=== PATIENT | female | born 1950 | race Caucasian/White ===

== ENCOUNTER 2016-06-24 21:36 | Emergency (ER) | payer MEDICARE, OTHER ==
[~2016-06-24 21:36] MED LIST: ADVAIR 100-501 EACH INH; ADVAIR 500-501 EACH INH; ALBUTEROL1.25 MG/3 INH; ALBUTEROL2.5 MG/3 M IH; ATROVENT HFA12.9 GM INH; CARAFATE1 GM PO; CETIRIZINE HCL10 MG PO; DUONEB 2.5-0.5MG3 ML INH; DUONEB 2.5-0.5MG3 ML NEB; HCTZ25 MG PO; HYDROCHLOROTH12.5 MG PO; HYDROCHLOROTHIA25 MG PO; IBUPROFEN800 MG PO; LEVAQUIN500 MG PO; LEVAQUIN750 MG PO; LEVOFLOXACIN500 MG PO; LEVOFLOXACIN750 MG PO; MAALOX PLUS30 ML PO; METOCLOPRAMIDE10 MG PO; MONTELUKAST SOD10 MG PO; PANTOPRAZOLE SO40 MG PO; POTASSIUM CHLO10 ME1 PO; POTASSIUM CHLO10 MEQ PO; PRAMIPEXOLE DIHY1 MG PO; PREDNISONE10 MG PO; PREVACID30 M1 PO; PREVACID30 MG PO; PRILOSEC20 MG PO; PROAIR HFA8.5 GM INH; PROVENTIL INHAL17 GM INH; SUCRALFATE1 GM PO; VISTARIL25 MG PO; ZOVIRAX400 MG PO; [UNRECOGNIZED DRUG - OTHER] PO
[2016-06-24 22:41] LABS: BASO # 0.1 10_X3_uL (0.0-0.1); BASO % 0.7 % (0.1-1.2); EOS # 0.3 10_X3_uL (0.0-0.4); EOS % 2.4 % (0.7-5.8); GRAN # 9.7 10_X3_uL (1.6-6.1); GRAN % 71.2 % (34.0-71.1); HEMATOCRIT 39.2 % (34-45); HEMOGLOBIN 12.5 g/dL (11.2-15.7); LYMPH # 2.6 10_X3_uL (1.2-3.7); LYMPH % 18.9 % (19.3-51.7); MEAN CORPUSCULAR HEMOGLOBIN 26.8 pg (27.0-33.0); MEAN CORPUSCULAR HGB CONC 31.9 g/dL (32.0-36.0); MEAN CORPUSCULAR VOLUME 84.1 fL (79-95); MEAN PLATELET VOLUME 11.9 fl (7.5-11.5); MONO # 0.9 10_X3_uL (0.2-0.9); MONO % 6.8 % (4.7-12.5); RED BLOOD COUNT 4.66 x10_6/uL (3.9-5.2); RED CELL DISTRIBUTION WIDTH 13.6 % (11.7-14.4); WHITE BLOOD COUNT 13.6 x10_3/uL (4.0-10.0)
[2016-06-24 22:53] LABS: PLATELET COUNT 277 x10_3/uL (182-369)
[2016-06-24 23:00] LABS: ALBUMIN 3.8 gm/dL (3.4-5.0); ALKALINE PHOSPHATASE 62 U/L (50-136); ALT/SGPT 10 U/L (3.5-33.9); AST/SGOT 12 U/L (7.04-26.96); BILIRUBIN,TOTAL 0.31 mg/dL (0.0-1.0); BLOOD UREA NITROGEN 17 mg/dL (7-18); CALCIUM 8.8 mg/dL (8.7-10.7); CARBON DIOXIDE 31 mmol/L (21-32); CREATININE 0.7 mg/dL (0.6-1.3); GLUCOSE,RANDOM 103 mg/dL (70-99); POTASSIUM 3.5 mmol/L (3.5-5.1); SODIUM 142 mmol/L (136-145); TOTAL PROTEIN 7.4 gm/dL (6.4-8.2)
== END 2016-06-24 23:39 | disposition home or self-care (01) ==
LOC: ER 21:36
PROVIDERS: Emergency Medicine
DX: J44.1 Chronic obstructive pulmonary disease with (acute) exacerbation (principal); R06.02 Shortness of breath; Z99.81 Dependence on supplemental oxygen; I10 Essential (primary) hypertension; Z79.899 Other long term (current) drug therapy; Z88.1 Allergy status to other antibiotic agents
CPT/HCPCS: 36415; 71020; 80053; 83880; 85025; 87040; 93005; 94664; 96372; 99284; 99285-25; J2930

== ENCOUNTER 2016-11-05 19:42 | Inpatient (IN) | payer MEDICARE, OTHER ==
[~2016-11-05] VITALS: Ht 160 cm; Wt 83.0 kg
[2016-11-05 20:11] LABS: BASO # 0.1 10_X3_uL (0.0-0.1); BASO % 0.3 % (0.1-1.2); EOS # 0.2 10_X3_uL (0.0-0.4); EOS % 0.7 % (0.7-5.8); GRAN # 20.5 10_X3_uL (1.6-6.1); GRAN % 84.9 % (34.0-71.1); HEMATOCRIT 41.4 % (34-45); HEMOGLOBIN 13.9 g/dL (11.2-15.7); LYMPH # 2.1 10_X3_uL (1.2-3.7); LYMPH % 8.9 % (19.3-51.7); MEAN CORPUSCULAR HEMOGLOBIN 27.3 pg (27.0-33.0); MEAN CORPUSCULAR HGB CONC 33.6 g/dL (32.0-36.0); MEAN CORPUSCULAR VOLUME 81.2 fL (79-95); MEAN PLATELET VOLUME 11.5 fl (7.5-11.5); MONO # 1.3 10_X3_uL (0.2-0.9); MONO % 5.2 % (4.7-12.5); PLATELET COUNT 303 x10_3/uL (182-369); RED CELL DISTRIBUTION WIDTH 14.5 % (11.7-14.4)
[2016-11-05 20:14] LABS: WHITE BLOOD COUNT 24.2 x10_3/uL (4.0-10.0)
[2016-11-05 20:21] LABS: ARTERIAL BLD GAS O2 SATURATION 95.2 % (94-98); ARTERIAL BLOOD GAS BASE EXCESS 4.5 mmol/L (-2.0-3.0); ARTERIAL BLOOD GAS HCO3 28.8 mmol/L (22-26); ARTERIAL BLOOD GAS PCO2 42.9 mmHg (32-45); ARTERIAL BLOOD GAS pH 7.44 (7.35-7.45)
[2016-11-05 20:21] LABS: ALBUMIN 4.1 gm/dL (3.4-5.0); ALKALINE PHOSPHATASE 65 U/L (50-136); ALT/SGPT 14 U/L (3.5-33.9); AST/SGOT 18 U/L (7.04-26.96); BILIRUBIN,TOTAL 0.67 mg/dL (0.0-1.0); BLOOD UREA NITROGEN 10 mg/dL (7-18); CALCIUM 9.6 mg/dL (8.7-10.7); CARBON DIOXIDE 30 mmol/L (21-32); CREATININE 0.8 mg/dL (0.6-1.3); GLUCOSE,RANDOM 122 mg/dL (70-99); POTASSIUM 3.6 mmol/L (3.5-5.1); SODIUM 135 mmol/L (136-145); TOTAL PROTEIN 7.9 gm/dL (6.4-8.2)
[2016-11-06 11:29] LABS: HEMATOCRIT 38.4 % (34-45); HEMOGLOBIN 12.9 g/dL (11.2-15.7); MEAN CORPUSCULAR HEMOGLOBIN 27.2 pg (27.0-33.0); MEAN CORPUSCULAR HGB CONC 33.6 g/dL (32.0-36.0); MEAN PLATELET VOLUME 12.2 fl (7.5-11.5); RED BLOOD COUNT 4.74 x10_6/uL (3.9-5.2); RED CELL DISTRIBUTION WIDTH 14.2 % (11.7-14.4); WHITE BLOOD COUNT 17.5 x10_3/uL (4.0-10.0)
[2016-11-06 13:24] LABS: ALBUMIN 3.7 gm/dL (3.4-5.0); ALKALINE PHOSPHATASE 58 U/L (50-136); ALT/SGPT 13 U/L (3.5-33.9); AST/SGOT 12 U/L (7.04-26.96); BILIRUBIN,TOTAL 0.43 mg/dL (0.0-1.0); CALCIUM 9.5 mg/dL (8.7-10.7); CARBON DIOXIDE 24 mmol/L (21-32); CREATININE 0.9 mg/dL (0.6-1.3); GLUCOSE,RANDOM 206 mg/dL (70-99); MAGNESIUM 1.9 mg/dL (1.8-2.4); POTASSIUM 3.7 mmol/L (3.5-5.1); SODIUM 137 mmol/L (136-145); TOTAL PROTEIN 7.5 gm/dL (6.4-8.2)
[2016-11-06 13:29] LABS: BLOOD UREA NITROGEN 21 mg/dL (7-18)
[2016-11-06 14:05] LABS: URINE BILIRUBIN NEGATIVE (NEGATIVE); URINE BLOOD TRACE (NEGATIVE); URINE GLUCOSE (UA) 100 mg/dL (NORMAL); URINE KETONE TRACE (NEGATIVE); URINE LEUKOCYTE ESTERASE TRACE (NEGATIVE); URINE NITRATE NEGATIVE (NEGATIVE); URINE PROTEIN 1+ (NEGATIVE); UROBILINOGEN NORMAL mg/dL (<1.0)
[2016-11-06 15:06] LABS: URINE HYALINE CAST RARE /[HPF] (0-1/hpf); URINE RBC RARE /[HPF] (0-2); URINE SQUAMOUS EPITHELIAL CELL 0-10 /[HPF] (NONE SEEN); URINE WBC RARE /[HPF] (0-5)
[2016-11-07 07:30] LABS: HEMATOCRIT 35.5 % (34-45); HEMOGLOBIN 11.7 g/dL (11.2-15.7); RED BLOOD COUNT 4.33 x10_6/uL (3.9-5.2); RED CELL DISTRIBUTION WIDTH 14.3 % (11.7-14.4)
[2016-11-07 07:35] LABS: WHITE BLOOD COUNT 29.4 x10_3/uL (4.0-10.0)
[2016-11-07 07:40] LABS: BLOOD UREA NITROGEN 24 mg/dL (7-18); CARBON DIOXIDE 28 mmol/L (21-32); CREATININE 0.8 mg/dL (0.6-1.3); GLUCOSE,RANDOM 137 mg/dL (70-99); POTASSIUM 4.2 mmol/L (3.5-5.1); SODIUM 140 mmol/L (136-145)
[2016-11-08 06:45] LABS: HEMATOCRIT 35.4 % (34-45); HEMOGLOBIN 11.5 g/dL (11.2-15.7); MEAN CORPUSCULAR HEMOGLOBIN 26.8 pg (27.0-33.0); MEAN CORPUSCULAR HGB CONC 32.5 g/dL (32.0-36.0); MEAN CORPUSCULAR VOLUME 82.5 fL (79-95); RED BLOOD COUNT 4.29 x10_6/uL (3.9-5.2); RED CELL DISTRIBUTION WIDTH 14.6 % (11.7-14.4)
[2016-11-08 06:53] LABS: BLOOD UREA NITROGEN 23 mg/dL (7-18); CALCIUM 9.3 mg/dL (8.7-10.7); CARBON DIOXIDE 28 mmol/L (21-32); CREATININE 0.7 mg/dL (0.6-1.3); GLUCOSE,RANDOM 110 mg/dL (70-99); POTASSIUM 4.5 mmol/L (3.5-5.1); SODIUM 137 mmol/L (136-145)
[2016-11-08 07:02] LABS: WHITE BLOOD COUNT 22.7 x10_3/uL (4.0-10.0)
== END 2016-11-08 11:24 | disposition swing bed (61) | DRG 871 ==
LOC: ER 19:42 → MS 21:02 → UNDODEPER 11-07 11:35 → MS 11-08 11:20
PROVIDERS: Family Medicine; General Practice; ADMIT Internal Medicine
DX: A41.9 Sepsis, unspecified organism (principal); J96.01 Acute respiratory failure with hypoxia; J15.1 Pneumonia due to Pseudomonas; J44.0 Chronic obstructive pulmonary disease with (acute) lower respiratory infection; J44.1 Chronic obstructive pulmonary disease with (acute) exacerbation; K21.9 Gastro-esophageal reflux disease without esophagitis; J30.9 Allergic rhinitis, unspecified; R00.0 Tachycardia, unspecified; R73.9 Hyperglycemia, unspecified; Z88.1 Allergy status to other antibiotic agents; Z78.0 Asymptomatic menopausal state; Z87.891 Personal history of nicotine dependence; Z99.81 Dependence on supplemental oxygen; Z79.899 Other long term (current) drug therapy; Z86.14 Personal history of Methicillin resistant Staphylococcus aureus infection
CPT/HCPCS: 36415; 36600; 71010; 80048; 80053; 80061; 81001; 82803; 82962; 83036; 83605; 83735; 83880; 85025; 86738; 87040; 87070; 87186; 87205; 87449; 94640; 94664; 96365; 96375; 99070; 99284; 99285-25; J2930

== ENCOUNTER 2016-11-05 19:42 | Emergency (ER) | payer MEDICARE, OTHER | END 2016-11-05 21:02 | disposition other institution (70) | LOC: ER 19:42 | DX: J44.0 Chronic obstructive pulmonary disease with (acute) lower respiratory infection (principal); J18.9 Pneumonia, unspecified organism; R06.2 Wheezing; R00.0 Tachycardia, unspecified; Z99.81 Dependence on supplemental oxygen; Z88.1 Allergy status to other antibiotic agents; Z79.899 Other long term (current) drug therapy | CPT/HCPCS: 99284; 99285-25 ==